=== PATIENT | female | born 1970 | race Caucasian/White ===

== ENCOUNTER 2023-12-17 11:13 | Outpatient (CLI) | payer BC, SELFPAY ==
--- NOTE | ~2023-12-17 | XR_ITS ---
AP and lateral views of the right hip Clinical history: Pain Findings: No acute fracture or dislocation is seen. Osseous alignment is anatomic. Right hip joint is preserved. Soft tissues are unremarkable. Impression: No significant abnormality is seen. Reviewed, dictated and finalized at location M. ADMINISTRATOR Impression: No significant abnormality is seen.
== END 2023-12-17 11:14 | disposition home or self-care (01) ==
PROVIDERS: PCP Nurse Practitioner Family; Visit Provider Nurse Practitioner Family
DX: M25.551 Pain in right hip (principal)
CPT/HCPCS: 73502

== ENCOUNTER 2024-04-09 11:38 | Outpatient (CLI) | payer BC, SELFPAY ==
--- NOTE | ~2024-04-09 | XR_ITS ---
EXAMINATION: XR lumbar spine 2-3V DATE: 04/09/2024 11:57 INDICATION: Right-sided low back pain. TECHNIQUE: 3 views of lumbar spine including standing views were obtained. COMPARISON: None. FINDINGS: There is 5 mm anterolisthesis of L4 on L5. Vertebral body heights are normal. There is mode rately decreased disc height at L1-L2 and L2-L3 and mildly decreased disc height from L3-L4 through L 5-S1. There is multilevel facet joint osteoarthritis, severe in lower lumbar spine. IMPRESSION: 1. Moderate lumbar spondylosis. Reviewed, dictated and finalized at location A. NESS COORDINATOR
== END 2024-04-09 11:39 | disposition home or self-care (01) ==
LOC: MICIMG 11:40
PROVIDERS: PCP Nurse Practitioner Family; Visit Provider Student in an Organized Health Care Education/Training Program
DX: M47.26 Other spondylosis with radiculopathy, lumbar region (principal)
CPT/HCPCS: 72100